=== PATIENT | male | born 1970 | race Caucasian/White ===

== ENCOUNTER → 2016-11-24 | Outpatient (CLI) | payer OTHER ==
--- NOTE | 2016-11-24 15:36 | RADRPT ---
PROCEDURE: XR AP pelvis and Hip. CLINICAL INDICATION: Pain. TECHNIQUE: AP and frog lateral views of the left hip were performed. COMPARISON: No. FINDINGS: There is narrowing of the right hip joint with a bone on bone appearance. There is subcortical luce ncy in the right femoral head. There is sclerosis and periarticular erosive changes and cysts in th e right acetabulum and head of the right femur. There is narrowing of the left hip joint with a spu r off the lateral margin of the superior left acetabulum. The SI joints are normal. 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 2. Osteoarthritis of the left hip with joint space narrowing. RPTAT:AAJJ Physician Rosemary Date Time Electronically viewed and signed by Salbador Hanna Physician on 11/24/2016 15:35 PETROS/
== END | disposition home or self-care (01) ==
LOC: HKI 14:35
PROVIDERS: ATTEND Orthopaedic Surgery
DX: M16.11 Unilateral primary osteoarthritis, right hip (principal); M25.551 Pain in right hip
CPT/HCPCS: 73502; Z7500; G0463